=== PATIENT | female | born 1975 | race Caucasian/White ===

== ENCOUNTER 2019-09-05 11:13 | Emergency (ER) | payer MEDICARE, MEDICAID ==
[~2019-09-05] VITALS: Ht 167.6 cm; Wt 109.1 kg
[~2019-09-05 11:13] MED LIST: CLON-528 PO; CYCL-1 PO; HYDR-2514 PO; POLY17PO10 PO
[2019-09-05] MEDS ORDERED: morphine 4 MG/ML inj SYRINge IV ONE (13:00)
[2019-09-05] MEDS ORDERED: diphenhydrAMINE 50 mg/ml inj IV ONE (13:00)
[2019-09-05] MEDS ORDERED: iohexol 300mg/ml 100ml inj. ONE (13:41)
[2019-09-05] MEDS ORDERED: acetaminophen/codeine 120mg/12mg per 5ml cup PO ONE (14:10)
[2019-09-05 14:58] LABS: CLARITY,URINE SLIGHTLY CLOUDY (Clear); COLOR,URINE YELLOW (Yellow); GLUCOSE, URINE NEGATIVE (Neg); KETONES,URINE NEGATIVE (Neg); LEUKOCYTE ESTERASE ,URINE MODERATE (Neg); NITRITES, URINE NEGATIVE (Neg); OCCULT BLOOD,URINE TRACE-INTACT (Neg); PROTEIN,URINE NEGATIVE (Neg); URINE HCG NEGATIVE (NEG); UROBILINOGEN,URINE 0.2 E.U/dL (0.2-1.0)
[2019-09-05 15:01] LABS: UA COLLECTION TYPE CLN CATCH MIDSTREAM
[2019-09-05 15:06] LABS: BACTERIA,URINE FEW /HPF (Neg); MUCUS STRANDS FEW /LPF (Neg); RBC,URINE 0-2 /HPF (0-2); SQUAMOUS EPITHELIAL CELL,UR MODERATE /LPF (FEW)
[2019-09-05] MEDS ORDERED: DOXYCYCLINE 100MG CAPSULE PO STA (15:07)
[2019-09-05] MEDS ORDERED: LORazepam 1 MG tablet PO ONE (15:15)
[2019-09-05 15:19] LABS: BASOPHILS % (AUTO) 0.5 % (0-1); EOSINOPHILS # (AUTO) 0.2 X10'3 (0-0.9); EOSINOPHILS % (AUTO) 2.5 % (0-6); HEMATOCRIT 38.3 % (35.0-45.0); HEMOGLOBIN 12.9 g/dl (12.0-16.0); LYMPHOCYTES # (AUTO) 2.9 X10'3 (1.1-4.8); LYMPHOCYTES % (AUTO) 30.8 % (21-51); MEAN CORPUSCULAR HEMOGLOBIN 28.5 PG (27.0-31.0); MEAN CORPUSCULAR HGB CONC 33.8 g/dL (33.0-36.5); MEAN CORPUSCULAR VOLUME 84.2 FL (78-98); MEAN PLATELET VOLUME 8.4 FL (7.4-10.4); MONOCYTES # (AUTO) 0.5 X10'3 (0-0.9); MONOCYTES % (AUTO) 5.5 % (2-12); NEUTROPHILS # (AUTO) 5.7 X10'3 (1.8-7.7); NEUTROPHILS % (AUTO) 60.7 % (42-75); PLATELET COUNT 209 X10'3 (140-440); RED BLOOD COUNT 4.55 X10'6 (4.20-5.60); RED CELL DISTRIBUTION WIDTH 13.4 % (11.5-14.5); WHITE BLOOD COUNT 9.3 X10'3 (4.5-11.0)
[2019-09-05 15:34] LABS: ALANINE AMINOTRANSFERASE 29 U/L (12-78); ALBUMIN 3.5 G/DL (3.4-5.0); ALKALINE PHOSPHATASE 47 IU/L (46-116); ANION GAP 3 (8-16); ASPARTATE AMINO TRANSFERASE 18 U/L (10-37); BILIRUBIN,TOTAL 0.4 MG/DL (0.1-1.0); BLOOD UREA NITROGEN 9 MG/DL (7-18); BUN/CREATININE RATIO 9.1 (6.6-38.0); CALCIUM 8.9 MG/DL (8.5-10.1); CHLORIDE 103 MMOL/L (99-107); CREATININE 0.99 MG/DL (0.40-0.90); GLUCOSE 88 MG/DL (70-104); SODIUM 135 MMOL/L (135-145); TOTAL CARBON DIOXIDE 29.1 MMOL/L (24-32); TOTAL PROTEIN 6.9 G/DL (6.4-8.2); eGFR 62 ML/MIN
[2019-09-05] MEDS ORDERED: LORA-269 PO (15:39)
[2019-09-05] MEDS ORDERED: MUPI22OI30 TOP (15:39)
[2019-09-05] MEDS ORDERED: DOXY100C2 PO (15:39)
[2019-09-05 16:05] VITALS: BP 142/91
== END 2019-09-05 16:08 | disposition home or self-care (01) ==
LOC: ER 11:14
DX: L03.221 Cellulitis of neck (principal); R13.10 Dysphagia, unspecified; M19.90 Unspecified osteoarthritis, unspecified site; G89.29 Other chronic pain; F32.9 Major depressive disorder, single episode, unspecified; F12.90 Cannabis use, unspecified, uncomplicated; Z98.51 Tubal ligation status; Z98.890 Other specified postprocedural states; Z88.0 Allergy status to penicillin; Z88.1 Allergy status to other antibiotic agents; Z88.8 Allergy status to other drugs, medicaments and biological substances; Z79.899 Other long term (current) drug therapy
CPT/HCPCS: 36415; 70491; 80053; 81001; 81025; 84145; 85025; 87088; 96374; 96375; 99285; J1200; J2270; Q9967

== ENCOUNTER 2019-09-14 09:37 | Emergency (ER) | payer MEDICARE, MEDICAID ==
[~2019-09-14] VITALS: Ht 167.6 cm; Wt 114.8 kg
[~2019-09-14 09:37] MED LIST changes: +LORA-269 PO
[2019-09-14] MEDS ORDERED: LORazepam 2 mg/ml vial IM ONE (10:25)
[2019-09-14] MEDS ORDERED: normal saline 1000ML IV soln IVB ONE (10:50)
[2019-09-14] MEDS ORDERED: morphine 4 MG/ML inj SYRINge IV ONE (11:30)
--- NOTE | 2019-09-14 11:52 | NUR ---
PT AMB TO XRAY WITH TECH.
[2019-09-14] MEDS ORDERED: LIDOcaine Viscous 15ml cup MM STA (12:28)
--- NOTE | 2019-09-14 12:57 | NUR ---
PT REPORTS IT IS MUCH EASIER TO SWALLOW AFTER TAKING THE LIDOCAINE. NOTIFY PROVIDER.
[2019-09-14] MEDS ORDERED: LIDO20SO16 PO (13:00)
[2019-09-14] MEDS ORDERED: LORA-268 PO (13:00)
--- NOTE | 2019-09-14 13:20 | NUR ---
PT STATES SHE IS FEELING SO MUCH BETTER. HAPPY WITH THE LIDOCAINE TREATMENT.
[2019-09-14 13:23] VITALS: BP 133/85
== END 2019-09-14 13:22 | disposition home or self-care (01) ==
LOC: ER 09:38
DX: R22.1 Localized swelling, mass and lump, neck (principal); M54.2 Cervicalgia; M19.90 Unspecified osteoarthritis, unspecified site; G89.29 Other chronic pain; F32.9 Major depressive disorder, single episode, unspecified; F12.90 Cannabis use, unspecified, uncomplicated; Z98.51 Tubal ligation status; Z72.89 Other problems related to lifestyle; Z88.0 Allergy status to penicillin; Z88.8 Allergy status to other drugs, medicaments and biological substances; Z79.899 Other long term (current) drug therapy
CPT/HCPCS: 70360; 96372; 96374; 99284; J2060; J2270; J7030; 99283

== ENCOUNTER 2020-03-13 17:41 | Emergency (ER) | payer MEDICARE, MEDICAID ==
[~2020-03-13] VITALS: Ht 167.6 cm; Wt 112.7 kg
[~2020-03-13 17:41] MED LIST changes: +LIDO20SO16 PO; +LORA-268 PO
[2020-03-13 17:48] VITALS: BP 165/104
[2020-03-13] MEDS ORDERED: HYDROcodone/acetaminophen 5mg/325mg tablet PO ONE (18:00)
[2020-03-13] MEDS ORDERED: ondansetron 4mg rapidly disintigrating tab PO ONE (18:00)
== END 2020-03-13 18:43 | disposition home or self-care (01) ==
LOC: ER 17:42
DX: S93.401A Sprain of unspecified ligament of right ankle, initial encounter (principal); G89.29 Other chronic pain; F32.9 Major depressive disorder, single episode, unspecified; F12.10 Cannabis abuse, uncomplicated; Z88.0 Allergy status to penicillin; Z88.2 Allergy status to sulfonamides; Z88.1 Allergy status to other antibiotic agents; Z79.899 Other long term (current) drug therapy; W18.39XA Other fall on same level, initial encounter; Y93.89 Activity, other specified; Y92.89 Other specified places as the place of occurrence of the external cause; Y99.8 Other external cause status
CPT/HCPCS: 29515; 73080; 73610; 99284

== ENCOUNTER 2023-05-29 10:04 | Emergency (ER) | payer MEDICARE, MEDICAID ==
[~2023-05-29] VITALS: Ht 167.6 cm; Wt 125.7 kg
[~2023-05-29 10:04] MED LIST changes: -CLON-528 PO; +CLON-850 PO
[2023-05-29 10:34] VITALS: BP 180/80; PULSE 65; RESP 18; TEMP 97.8; O2SAT 98
== END 2023-05-29 12:27 | disposition home or self-care (01) ==
LOC: ER 10:04
DX: R60.0 Localized edema (principal)
CPT/HCPCS: 93971; 99284

== ENCOUNTER 2024-11-14 12:03 | Outpatient (CLI) | payer MEDICARE, MEDICAID ==
--- NOTE | 2024-11-14 13:41 | RADIOLOGY REPORT ---
EXAM: CT CT PELVIS HISTORY: PAIN IN BILATERAL HIPS COMPARISON: None TECHNIQUE: Noncontrast axial CT images of the pelvis were performed. Sagittal and coronal reformatted images were obtained. This CT exam was performed using one or more of the following dose reduction techniques: Automated ex posure control, adjustment of the mA and/or kV according to patient size, or use of iterative reconst ruction technique. Radiation Dose Information: CT Dose: CTDI volume is 35.98 mGy. Dose-length product is 1033.79 mGy*cm. FINDINGS: No fractures are identified about the pelvis or hips. There is mild osteoarthritis of the hips with s mall marginal osteophytes and bilateral acetabular subcortical cystic changes, without significant angie int space narrowing. There are postoperative changes lumbosacral posterior fusion and discectomy span nunu L3-S1 with bone screws extending into the iliac bones. There are additional postoperative rausch es of bilateral sacroiliac metallic fusion. There is a left adnexal 3.3 cm homogeneous cyst (image 42 , series 2). The appendix is not visualized and may be surgically absent. IMPRESSION: 1. No fracture of the pelvis or hips. 2. Mild osteoarthritis of the bilateral hips. 3. Postoperative changes of lumbosacral discectomy and posterior fusion and bilateral sacroiliac join t fusion. 4. Left adnexal 3.3 cm homogeneous cyst. This may be better characterized with pelvic ultrasound on an outpatient nonemergent basis.
--- NOTE | 2024-11-14 14:17 | RADIOLOGY REPORT ---
EXAM: CT CT CERVICAL SPINE HISTORY: CERVICALGIA COMPARISON: None CTDIvol 26.4 mGy, DLP 541.8 mGy*cm. TECHNIQUE: Multiple axial CT images of the spine were obtained using bone algorithm. Axial and birch l reformatting was done. Bone and soft tissue windows were reviewed. FINDINGS: No evidence of definite acute fracture, spinal dislocation, or significant appearing acute subluxatio n is seen. IMPRESSION: No definite CT evidence of acute fracture or dislocation of the bony cervical spine.
== END 2024-11-14 23:59 | disposition home or self-care (01) ==
LOC: RAD 12:03
PROVIDERS: ATTEND Surgery
DX: N83.292 Other ovarian cyst, left side (principal); M16.0 Bilateral primary osteoarthritis of hip; M25.752 Osteophyte, left hip; M25.751 Osteophyte, right hip; M25.852 Other specified joint disorders, left hip; M25.851 Other specified joint disorders, right hip; M54.2 Cervicalgia; M25.551 Pain in right hip; M25.552 Pain in left hip; M54.16 Radiculopathy, lumbar region; G89.29 Other chronic pain
CPT/HCPCS: 72125; 72192